=== PATIENT | male | born 1935 | race Caucasian/White ===

== ENCOUNTER 2024-01-28 11:19 | Emergency (ER) | payer BC, MEDICARE | END 2024-01-28 13:03 | disposition home or self-care (01) | LOC: CSHERS 11:19 | DX: S62.521A Displaced fracture of distal phalanx of right thumb, initial encounter for closed fracture (principal); E11.9 Type 2 diabetes mellitus without complications; E78.5 Hyperlipidemia, unspecified; W19.XXXA Unspecified fall, initial encounter ==